=== PATIENT | female | born 1995 | race Caucasian/White ===

== ENCOUNTER 2016-11-09 18:46 | Emergency (ER) | payer OTHER | END 2016-11-09 19:39 | disposition home or self-care (01) | LOC: ED 18:46 | DX: S70.12XA Contusion of left thigh, initial encounter (principal); G40.909 Epilepsy, unspecified, not intractable, without status epilepticus; W50.0XXA Accidental hit or strike by another person, initial encounter; Y93.89 Activity, other specified; Z79.899 Other long term (current) drug therapy ==